=== PATIENT | male | born 1980 | race American Indian/Alaskan Native ===

== ENCOUNTER 2017-08-15 16:43 | Emergency (ER) | payer OTHER ==
--- NOTE | 2017-08-15 16:55 | ED PDOC ---
Arrival/HPI - General Time Seen by Provider: 08/15/17 16:44 Historian: Patient, EMS - History of Present Illness Narrative History of Present Illness (Text): 08/15/17 16:52 37 y/o male, pmh including multiple syncope, nkda, biba from his job place while he was at work inside a warm room which he feel very warm and stood up which he stated that he feel light headed and passed out. Pt. stated that he was caught by the coworker, ambulance was call and bring to the ER. Pt. stated that he does drink here and there, does smoke marijuana but doesn't do any other illegal drugs. pt. stated that he has not been eating and drinking well, not sleeping well either. Pt. has no chest pain or shortness of breath, no palpitation, no night sweat, no weight loss, no neck or back pain, no headache, no change in vision, no stool discoloration, no abdominal pain, no pelvic pain, no other medical or psychological complaints. Past Medical History - Provider Review Nursing Documentation Reviewed: Yes Family/Social History - Physician Review Nursing Documentation Reviewed: Yes Family/Social History: Unknown Family HX Allergies/Home Meds Allergies/Adverse Reactions: Allergies No Known Allergies Allergy (Verified 08/15/17 16:55) Home Medications: Home Meds Medication Instructions Recorded Confirmed No Known Home Med 08/15/17 08/15/17 Review of Systems - Review of Systems Constitutional: Fatigue. absent: Fevers Eyes: absent: Vision Changes ENT: absent: Hearing Changes Respiratory: absent: SOB, Cough Cardiovascular: absent: Chest Pain Gastrointestinal: absent: Abdominal Pain, Nausea, Vomiting Musculoskeletal: absent: Arthralgias, Back Pain Skin: absent: Rash, Pruritis Neurological: absent: Headache, Dizziness Psychiatric: absent: Anxiety, Depression, Suicidal Ideation Physical Exam Vital Signs Temp Pulse Resp BP Pulse Ox 08/15/17 22:09 98.0 F 78 17 102/76 98 08/15/17 20:11 81 17 112/63 100 08/15/17 17:49 74 16 110/87 100 08/15/17 16:56 98.6 F 70 16 108/58 L 100 - Systems Exam Head: Present: Atraumatic, Normocephalic, Other (no facial bony tenderness). No : Tenderness, Contusion, Swelling, Ecchymosis, Abrasion, Laceration Pupils: Present: PERRL Extroacular Muscles: Present: EOMI Conjunctiva: Present: Normal Mouth: Present: Moist Mucous Membranes Pharnyx: Present: Normal. No: ERYTHEMA, EXUDATE, TONSILS ENLARGED Nose (External): Present: Atraumatic. No: Abrasion, Contusion, Laceration Nose (Internal): Present: Normal Inspection, No Active Bleeding. No: Rhinorrhea , Septal Hematoma, Epistaxis Neck: Present: Normal Range of Motion, Trachea Midline. No: Meningeal Signs, MIDLINE TENDERNESS, Paraspinal Tenderness, Lymphadenopathy Respiratory/Chest: Present: Clear to Auscultation, Good Air Exchange. No: Respiratory Distress, Accessory Muscle Use Cardiovascular: Present: Regular Rate and Rhythm, Normal S1, S2. No: Murmurs Abdomen: Present: Normal Bowel Sounds. No: Tenderness, Distention, Peritoneal Signs, Rebound, Guarding Back: Present: Normal Inspection Upper Extremity: Present: Normal Inspection, Normal ROM, NORMAL PULSES, Neurovascularly Intact, Capillary Refill < 2s. No: Cyanosis, Edema, Deformity Lower Extremity: Present: Normal Inspection, NORMAL PULSES, Normal ROM, Capillary Refill < 2 s. No: Edema, Deformity Neurological: Present: GCS=15, CN II-XII Intact, Speech Normal, Motor Func Grossly Intact, Memory Normal Skin: Present: Warm, Dry, Normal Color. No: Rashes Psychiatric: Present: Alert, Oriented x 3, Normal Insight, Normal Concentration Medical Decision Making ED Course and Treatment: 08/15/17 16:56 Differential: dehydration vs. vasovagal vs. ICH vs. vs. orthostatic hypotension vs. cardiac arrythmia vs. drug abuse -labs/ua/uds -EKG -CT head -Chest xray -Orthostatic v/s -IVF -Observe and reassess 08/15/17 21:40 -Orthostatic v/s within normal limit. -EKG: NSR @ 80 BPM, no ST elevation or depression, no T wave inversion. -Chest xray no active disease -CT Head show no acute findings. -Labs are non-significant -Alcohol/tylenol/salicylate acid within normal limit -UA show no acute findings -UDS show no acute findings except +cannabinoid -Based on the [place] syncope rule, pt. is in the low risk group. -HEART score 0 -Case discussed with Dr. Lemus and agreed on the dispo. 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 - Lab Interpretations Lab Results: 08/15/17 17:22 08/15/17 17:22 Lab Results 08/15/17 20:52: Urine Opiates Screen Negative, Urine Methadone Screen Negative, Ur Barbiturates Screen Negative, Ur Phencyclidine Scrn Negative, Ur Amphetamines Screen Negative, U Benzodiazepines Scrn Negative, U Oth Cocaine Metabols Negative, U Cannabinoids Screen Positive H 08/15/17 20:52: Urine Color Yellow, Urine Appearance Clear, Urine pH 6.0, Ur Specific [place] 1.025, Urine Protein Trace H, Urine Glucose (UA) Negative, Urine Ketones Trace H, Urine Blood Negative, Urine Nitrate Negative, Urine Bilirubin Negative, Urine Urobilinogen 0.2, Ur Leukocyte Esterase Negative, Urine RBC 0 - 2, Urine WBC 0 - 2, Ur Epithelial Cells 0 - 2 08/15/17 17:22: WBC 6.3, RBC 4.24, Hgb 11.0 L, Hct 33.0 L, MCV 77.8 L, MCH 25.9 , MCHC 33.3, RDW 12.8, Plt Count 162, MPV 10.0, Gran % 63.6, Lymph % (Auto) 22.9 , [place] % (Auto) 10.5 H, Eos % (Auto) 2.5, Baso % (Auto) 0.5, Gran # 4.00, Lymph # 1.4, [place] # 0.7 H, Eos # 0.2, Baso # 0.03 08/15/17 17:22: Alcohol, Quantitative < 10 08/15/17 17:22: Salicylates < 1 L, Acetaminophen < 10.0 L 08/15/17 17:22: Sodium 140, Potassium 3.6, Chloride 105, Carbon Dioxide 27, Anion Gap 11, BUN 14, Creatinine 0.8, Est GFR ( Amer) > 60, Est GFR (Non- Af Amer) > 60, Random Glucose 116 H, Calcium 9.5, Magnesium 1.7, Total Bilirubin 0.6, AST 35, ALT 28, Alkaline Phosphatase 38, Total Creatine Kinase 266 H, CK-MB (CK-2) 1.2, CK-MB (CK-2) % Cancelled, Total Protein 7.0, Albumin 4.2, Globulin 2.7, Albumin/Globulin Ratio 1.6 I have reviewed the lab results: Yes Interpretation: No clinic. lab abnormalty - RAD Interpretation Radiology Orders: 08/15/17 17:01 HEAD W/O CONTRAST [CT] Stat CHEST PORTABLE [RAD] Stat CT Head: PROCEDURE: CT HEAD WITHOUT CONTRAST. HISTORY: syncope, fall COMPARISON: None available. TECHNIQUE: Axial computed tomography images were obtained through the head/brain without intravenous contrast. Radiation dose: Total exam DLP = 726.57 mGy-cm. This CT exam was performed using one or more of the following dose reduction techniques: Automated exposure control, adjustment of the mA and/or kV according to patient size, and/or use of iterative reconstruction technique. FINDINGS: HEMORRHAGE: No intracranial hemorrhage. BRAIN: No mass effect or edema. No atrophy or chronic microvascular ischemic changes. Please note that MRI with diffusion imaging is more sensitive in the detection of acute ischemic event. VENTRICLES: No hydrocephalus. CALVARIUM: Unremarkable. PARANASAL SINUSES: Unremarkable as visualized. No significant inflammatory changes. MASTOID AIR CELLS: Unremarkable as visualized. No inflammatory changes. OTHER FINDINGS: None. IMPRESSION: No acute intracranial pathology identified. Chest xray: no active disease Manager Photo: Radiologist - EKG Interpretation EKG Interpretation (Text): 08/15/17 16:57 -EKG: NSR @ 80 BPM, no ST elevation or depression, no T wave inversion. Interpreted by ED Physician: Yes Type: 12 lead EKG - Medication Orders Current Medication Orders: Discontinued Medications Sodium Chloride (Sodium Chloride 0.9%) 1,000 mls @ 999 mls/hr IV .Q1H1M STA Stop: 08/15/17 18:01 Last Admin: 08/15/17 17:30 Dose: 999 mls/hr eMAR Start Stop Document 08/15/17 17:30 HI (Rec: 08/15/17 17:30 HI [id number]) Intravenous Solution Start Date 08/15/17 Start Time 17:30 Sodium Chloride (Sodium Chloride 0.9%) 1,000 mls @ 250 mls/hr IV .Q4H VAHID Stop: 08/15/17 22:44 Last Admin: 08/15/17 18:47 Dose: 250 mls/hr eMAR Start Stop Document 08/15/17 18:47 HI (Rec: 08/15/17 18:47 HI [id number]) Intravenous Solution Start Date 08/15/17 Start Time 18:40 - PA / YARN REWINDER / Resident Statement MD/DO has reviewed & agrees with the documentation as recorded. Disposition/Present on Arrival - Present on Arrival Any Indicators Present on Arrival: No History of DVT/PE: No History of Uncontrolled Diabetes: No Urinary Catheter: No History of Decub. Ulcer: No - Disposition Have Diagnosis and Disposition been Completed?: Yes Diagnosis: Syncope, Drug abuse Disposition: HOME/ ROUTINE Disposition Time: 21:42 Patient Plan: Discharge Condition: IMPROVED Discharge Instructions (ExitCare): Syncope (ED) Additional Instructions: -Discharge home with bed rest, stay hydrated, follow up with your own pmd and wind turbine electrical engineer/neurologist within 2 days, return to the ER for any new or worsening signs or symptoms. Referrals: PCP,NO [Primary Care Provider] - Follow up with primary Ba Flynn MD [Staff Provider] - Follow up with primary Vik Shi MD [Staff Provider] - Follow up with primary [facility] [place] [facility] [place] - Follow up with primary Forms: WORK NOTE
[2017-08-15 16:56] VITALS: BMI 22.6
[2017-08-15] MEDS ORDERED: Sodium Chloride 0.9% 1,000 ML IV STA (17:01)
[2017-08-15 17:32] LABS: BASO # 0.03 K/mm3 (0.0-2.0); BASO % 0.5 % (0.0-3.0); EOS # 0.2 (0.0-0.7); EOS % 2.5 % (1.5-5.0); GRAN % 63.6 % (50.0-68.0); LYMPH # 1.4 (1.2-3.4); LYMPH % 22.9 % (22.0-35.0); MEAN CELL VOLUME 77.8 fl (80.0-105.0); MEAN CORPUSCULAR HEMOGLOBIN 25.9 pg (25.0-35.0); MEAN CORPUSCULAR HGB CONC 33.3 g/dl (31.0-37.0); MONO # 0.7 (0.1-0.6); MONO % 10.5 % (1.0-6.0); RED CELL DISTRIBUTION WIDTH 12.8 % (11.5-14.5); WHITE BLOOD COUNT 6.3 10^3/ul (4.5-11.0)
[2017-08-15 17:51] LABS: ALB/GLOB RATIO 1.6 (1.1-1.8); ALKALINE PHOSPHATASE 38 U/L (38-126); ALT/SGPT 28 U/L (7-56); AST/SGOT 35 U/L (17-59); BILIRUBIN,TOTAL 0.6 mg/dL (0.2-1.3); BLOOD UREA NITROGEN 14 mg/dL (7-21); CALCIUM 9.5 mg/dL (8.4-10.5); CARBON DIOXIDE 27 mmol/L (21-33); CHLORIDE 105 mmol/L (98-107); GFR AFRICAN-AMERICAN > 60; GLUCOSE,RANDOM 116 mg/dL (70-110); MAGNESIUM 1.7 mg/dL (1.7-2.2); POTASSIUM 3.6 mmol/L (3.6-5.0); SODIUM 140 mmol/L (132-148)
--- NOTE | 2017-08-15 18:25 | CT ---
PROCEDURE: CT HEAD WITHOUT CONTRAST. HISTORY: syncope, fall COMPARISON: None available. TECHNIQUE: Axial computed tomography images were obtained through the head/brain without intravenous contrast. Radiation dose: Total exam DLP = 726.57 mGy-cm. This CT exam was performed using one or more of the following dose reduction techniques: Automated exposure control, adjustment of the mA and/or kV according to patient size, and/or use of iterative reconstruction technique. FINDINGS: HEMORRHAGE: No intracranial hemorrhage. BRAIN: No mass effect or edema. No atrophy or chronic microvascular ischemic changes. Please note that MRI with diffusion imaging is more sensitive in the detection of acute ischemic event. VENTRICLES: No hydrocephalus. CALVARIUM: Unremarkable. PARANASAL SINUSES: Unremarkable as visualized. No significant inflammatory changes. MASTOID AIR CELLS: Unremarkable as visualized. No inflammatory changes. OTHER FINDINGS: None. IMPRESSION: No acute intracranial pathology identified.
[2017-08-15] MEDS ORDERED: Sodium Chloride 0.9% 1,000 ML IV SCH (18:45)
[2017-08-15 20:11] VITALS: RESP 17
[2017-08-15 21:12] LABS: URINE BILIRUBIN NEGATIVE (NEGATIVE); URINE BLOOD NEGATIVE (NEGATIVE); URINE GLUCOSE (UA) NEGATIVE (NEGATIVE); URINE KETONE TRACE mg/dL (NEGATIVE); URINE LEUKOCYTE ESTERASE NEGATIVE Leu/uL (NEGATIVE); URINE PROTEIN TRACE mg/dL (<30 mg/dL); URINE UROBILINOGEN 0.2 E.U./dL (<1 E.U./dL)
[2017-08-15 21:18] LABS: URINE APPEARANCE CLEAR (CLEAR); URINE COLOR YELLOW (YELLOW)
[2017-08-15 21:27] LABS: URINE EPITHELIAL CELLS 0 - 2 /hpf (0-5); URINE RBC 0 - 2 /hpf (0-2); URINE WBC 0 - 2 /hpf (0-6)
[2017-08-15 22:11] VITALS: BP 102/76; PULSE 78; TEMP 98; O2SAT 98
--- NOTE | 2017-08-16 08:57 | RAD ---
HISTORY: medical clearance COMPARISON: No prior. FINDINGS: LUNGS: No active pulmonary disease. PLEURA: No significant pleural effusion identified, no pneumothorax apparent. CARDIOVASCULAR: Normal. OSSEOUS STRUCTURES: There is moderate to severe scoliosis VISUALIZED UPPER ABDOMEN: Normal. OTHER FINDINGS: None. IMPRESSION: No active disease.
--- NOTE | 2017-08-16 18:30 | CARD ---
APPROVED REPORT EKG Measurement Heart [id number] <Conclusion> Normal sinus rhythm Normal ECG
== END 2017-08-15 22:11 | disposition home or self-care (01) ==
LOC: ED 16:43
DX: R55 Syncope and collapse (principal); F19.10 Other psychoactive substance abuse, uncomplicated
CPT/HCPCS: 70450; 71010; 80053; 80320; 80324; 80329; 80345; 80346; 80349; 80353; 80358; 80361; 81001; 82550; 82553; 83735; 83992; 85025; 93005; 99285; J7040

== ENCOUNTER 2017-08-27 07:24 | Emergency (ER) | payer OTHER ==
[2017-08-27 07:27] VITALS: BMI 22.6
[2017-08-27 07:40] VITALS: RESP 18; TEMP 97.8; O2SAT 100
[2017-08-27] MEDS ORDERED: Sodium Chloride 0.9% 500 ML IV STA (07:52)
--- NOTE | 2017-08-27 07:52 | ED PDOC ---
Arrival/HPI - General Chief Complaint: Palpitations Time Seen by Provider: 08/27/17 07:35 Historian: Patient - History of Present Illness Narrative History of Present Illness (Text): 08/27/17 07:52 A 37 year old male presents to the emergency department complaining of palpitations since 06:30 this morning. Patient states his symptoms have improved since. He reports he does not eat or drink enough throughout the day or sleep well at night. Patient notes feeling stressed at work. Patient denies any fever, chills, nausea, vomiting, abdominal pain, chest pain, shortness of breath, headache, dizziness or any other complaints. PMD: None Time/Duration: Other (06:30 this morning) Symptom Course: Improving Context: Home Past Medical History - Provider Review Nursing Documentation Reviewed: Yes - Infectious Disease Hx of Infectious Diseases: None - Pulmonary Hx Respiratory Disorders: No - Neurological Hx Neurological Disorder: No - HEENT Hx HEENT Disorder: No - Renal Hx Renal Disorder: No - Endocrine/Metabolic Hx Endocrine Disorders: No - Hematological/Oncological Hx Blood Disorders: No - Integumentary Hx Dermatological Disorder: No - Musculoskeletal/Rheumatological Hx Musculoskeletal Disorders: No - Gastrointestinal Hx Gastrointestinal Disorders: No - Genitourinary/Gynecological Hx Genitourinary Disorders: No - Psychiatric Hx Psychophysiologic Disorder: No Hx Substance Use: Yes - Anesthesia Hx Anesthesia: No Hx Anesthesia Reactions: No Hx Malignant Hyperthermia: No Family/Social History - Physician Review Nursing Documentation Reviewed: Yes Family/Social History: No Known Family HX Smoking Status: Light Smoker < 10 Cigarettes Daily Hx Alcohol Use: Yes Frequency of alcohol use: Socially Hx Substance Use: Yes Substance used: Marijuana Allergies/Home Meds Allergies/Adverse Reactions: Allergies amoxicillin Adverse Reaction (Verified 02/16/17 02:49) SWELLING Home Medications: Home Meds Medication Instructions Recorded Confirmed No Known Home Med 02/16/17 08/27/17 No Known Home Med 08/15/17 08/15/17 Review of Systems - Physician Review All systems were reviewed & negative as marked: Yes - Review of Systems Constitutional: absent: Fevers, Night Sweats Respiratory: absent: SOB Cardiovascular: Palpitations. absent: Chest Pain Gastrointestinal: absent: Abdominal Pain, Diarrhea, Nausea, Vomiting Neurological: absent: Headache, Dizziness Physical Exam Vital Signs Reviewed: Yes Vital Signs Temp Pulse Resp BP Pulse Ox 08/27/17 09:28 76 115/66 08/27/17 07:36 97.8 F 86 18 118/52 L 100 Temperature: Afebrile Pulse: Regular Respiratory Rate: Normal Appearance: Positive for: Well-Appearing, Non-Toxic, Comfortable Pain Distress: None Mental Status: Positive for: Alert and Oriented X 3 - Systems Exam Head: Present: Atraumatic, Normocephalic Pupils: Present: PERRL Extroacular Muscles: Present: EOMI Conjunctiva: Present: Normal Mouth: Present: Moist Mucous Membranes Neck: Present: Normal Range of Motion Respiratory/Chest: Present: Clear to Auscultation, Good Air Exchange. No: Respiratory Distress, Accessory Muscle Use Cardiovascular: Present: Regular Rate and Rhythm, Normal S1, S2. No: Murmurs Abdomen: Present: Normal Bowel Sounds. No: Tenderness, Distention, Peritoneal Signs Back: Present: Normal Inspection Upper Extremity: Present: Normal Inspection. No: Cyanosis, Edema Lower Extremity: Present: Normal Inspection. No: Edema Neurological: Present: GCS=15, CN II-XII Intact, Speech Normal, Motor Func Grossly Intact, Normal Sensory Function, Normal Cerebellar Funct, Gait Normal Skin: Present: Warm, Dry, Normal Color. No: Rashes Psychiatric: Present: Alert, Oriented x 3, Normal Insight, Normal Concentration , Normal Affect, Normal Mood. No: Suicidal Ideation Medical Decision Making ED Course and Treatment: 08/27/17 07:52 Impression: A 37 year old male with palpitations. No chest pain. Differential Diagnosis included but are not limited to: Anxiety vs. Stress vs. Dehydration vs. Lack of sleep Plan: -- Labs -- IV fluids -- Reassess and disposition Progress Notes: EKG shows NSR at [address]-segment elevations, normal intervals. Interpreted by me. 08/27/17 9:28 On reevaluation, patient feels better. He has no symptoms. He had a mildly low magnesium with no symptoms at this time. Magnesium PO given. Patient will follow up with the clinic in 1-2days. He was advised to return to the ED if symptoms worsen or any other concern. - Lab Interpretations Lab Results: 08/27/17 08:00 08/27/17 08:00 Lab Results 08/27/17 08:00: Sodium 143, Potassium 4.1, Chloride 106, Carbon Dioxide 22, Anion Gap 18, BUN 11, Creatinine 0.9, Est GFR ( Amer) > 60, Est GFR (Non- Af Amer) > 60, Random Glucose 75, Calcium 9.5, Magnesium 1.6 L 08/27/17 08:00: WBC 6.6, RBC 4.41, Hgb 11.2 L, Hct 34.7 L, MCV 78.7 L, MCH 25.4 , MCHC 32.3, RDW 13.7, Plt Count 169, MPV 9.5, Gran % 56.6, Lymph % (Auto) 29.9 , [place] % (Auto) 9.2 H, Eos % (Auto) 3.2, Baso % (Auto) 1.1, Gran # 3.76, Lymph # 2.0, [place] # 0.6, Eos # 0.2, Baso # 0.07 I have reviewed the lab results: Yes - Medication Orders Current Medication Orders: Discontinued Medications Sodium Chloride (Sodium Chloride 0.9%) 500 mls @ 999 mls/hr IV .Q31M STA Stop: 08/27/17 08:22 Last Admin: 08/27/17 08:06 Dose: 999 mls/hr eMAR Start Stop Document 08/27/17 08:06 MS (Rec: 08/27/17 08:07 MS [id number]) Intravenous Solution Start Date 08/27/17 Start Time 08:06 End Date 08/27/17 End time 08:36 Total Infusion Time 30 Magnesium Oxide (Mag-Ox) 400 mg PO STAT STA Stop: 08/27/17 09:13 Last Admin: 08/27/17 09:20 Dose: 400 mg - Scribe Statement The provider has reviewed the documentation as recorded by the Reggie De La Rosa Provider Scribe Attestation: All medical record entries made by the Lorrieibselene were at my direction and personally dictated by me. I have reviewed the chart and agree that the record accurately reflects my personal performance of the history, physical exam, medical decision making, and the department course for this patient. I have also personally directed, reviewed, and agree with the discharge instructions and disposition. Disposition/Present on Arrival - Present on Arrival Any Indicators Present on Arrival: No History of DVT/PE: No History of Uncontrolled Diabetes: No Urinary Catheter: No History of Decub. Ulcer: No History Surgical Site Infection Following: None - Disposition Have Diagnosis and Disposition been Completed?: Yes Diagnosis: Palpitations, Hypomagnesemia Disposition: HOME/ ROUTINE Disposition Time: 09:28 Patient Plan: Discharge Condition: IMPROVED Discharge Instructions (ExitCare): Palpitations (ED), Hypomagnesemia (ED) Additional Instructions: Mr Mccormick, thank you for letting us take care of you today. Your provider was Dr. Valerio. You were treated for Palpitations, Hypomagnesia. The emergency medical care you received today was directed at your acute symptoms. If you were prescribed any medication, please fill it and take as directed. It may take several days for your symptoms to resolve. Return to the Emergency Department if your symptoms worsen, do not improve, or if you have any other problems. Please contact your doctor or call one of the physicians/clinics you have been referred to that are listed on the Patient Visit Information form that is included in your discharge packet. Bring any paperwork you were given at discharge with you along with any medications you are taking to your follow up visit. Our treatment cannot replace ongoing medical care by a primary care provider (PCP) outside of the emergency department. Thank you for allowing the [facility] team to be part of your care today. If you had an X-Ray or CT scan: A Radiologist will review the ED reading if any change in treatment is needed we will contact you. If you had a blood, urine, or wound culture: It will take several days for the results, if any change in treatment is needed we will contact you. If you had an STI test: It will take 48 hours for the results. Please call after 1 week if you have not heard back. Referrals: [facility] at [facility] [place] [Outside] - Follow up with primary Forms: [employer] (Ukrainian), WORK NOTE
[2017-08-27 08:34] LABS: BASO # 0.07 K/mm3 (0.0-2.0); BASO % 1.1 % (0.0-3.0); EOS # 0.2 (0.0-0.7); EOS % 3.2 % (1.5-5.0); GRAN # 3.76 (1.4-6.5); GRAN % 56.6 % (50.0-68.0); HEMATOCRIT 34.7 % (42.0-52.0); LYMPH % 29.9 % (22.0-35.0); MEAN CELL VOLUME 78.7 fl (80.0-105.0); MEAN CORPUSCULAR HEMOGLOBIN 25.4 pg (25.0-35.0); MEAN CORPUSCULAR HGB CONC 32.3 g/dl (31.0-37.0); MEAN PLATELET VOLUME 9.5 fl (7.0-11.0); MONO # 0.6 (0.1-0.6); MONO % 9.2 % (1.0-6.0); RED CELL DISTRIBUTION WIDTH 13.7 % (11.5-14.5); WHITE BLOOD COUNT 6.6 10^3/ul (4.5-11.0)
[2017-08-27 09:04] LABS: BLOOD UREA NITROGEN 11 mg/dL (7-21); CALCIUM 9.5 mg/dL (8.4-10.5); CARBON DIOXIDE 22 mmol/L (21-33); CHLORIDE 106 mmol/L (98-107); GFR AFRICAN-AMERICAN > 60; GLUCOSE,RANDOM 75 mg/dL (70-110); MAGNESIUM 1.6 mg/dL (1.7-2.2); POTASSIUM 4.1 mmol/L (3.6-5.0); SODIUM 143 mmol/L (132-148)
[2017-08-27] MEDS ORDERED: Magnesium Oxide 400 mg Tab UD PO STA (09:12)
[2017-08-27 09:29] VITALS: BP 115/66; PULSE 76
--- NOTE | 2017-08-27 17:24 | CARD ---
APPROVED REPORT EKG Measurement Heart [id number] <Conclusion> Normal sinus rhythm Normal ECG
== END 2017-08-27 09:30 | disposition home or self-care (01) ==
LOC: ED 07:24
DX: E83.42 Hypomagnesemia (principal); R00.2 Palpitations; F17.210 Nicotine dependence, cigarettes, uncomplicated
CPT/HCPCS: 80048; 83735; 85025; 93005; 99284; J7040